=== PATIENT | male | born 1970 | race Caucasian/White ===

== ENCOUNTER 2017-08-31 18:39 | Emergency (ER) | payer MEDICAID ==
[~2017-08-31] VITALS: Ht 180.3 cm; Wt 86.2 kg
[~2017-08-31 18:39] MED LIST: BENADRYL25 MG PO; CHOLESTEROL; EXCEDRIN CAPLE1 EACH PO; GEODON60 MG PO; KLONOPIN0.5 MG PO; KLONOPIN1 MG PO; MAXALT10 MG PO; MEDROLDOSEPACK PO; NORCO 5-325 TA1 EACH PO; OMEGA-31000 M1 PO; RELPAX40 MG PO; TOPAMAX 100 MG100 MG PO; TRIAMCINOLONE A80 GM TOP; ULTRAM 50MG TAB50 MG PO; VALIUM5 MG PO
[2017-08-31] MEDS ORDERED: ZYPREXA 5 MG TAB5 M1 PO (18:46)
[2017-08-31 19:11] LABS: ABSOLUTE BASOPHILS 0.1 thou/uL (0.0-0.2); ABSOLUTE EOSINOPHILS 0.4 thou/uL (0.0-0.7); ABSOLUTE LYMPHOCYTES 3.4 thou/uL (0.8-5.3); ABSOLUTE MONOCYTES 0.8 thou/uL (0.0-1.2); ABSOLUTE NEUTROPHILS 10.5 thou/uL (1.6-8.1); BASOPHILS 0.9 %; EOSINOPHILS 2.4 %; HEMATOCRIT 45.9 % (42.0-52.0); HEMOGLOBIN 15.3 gm/dL (14.0-18.0); LYMPHOCYTES 22.4 %; MCH 29.9 pg (26.0-34.0); MCHC 33.3 g/dL (28.0-37.0); MCV 89.8 fL (80.0-100.0); MONOCYTES 5.4 %; MPV 7.6 fl. (7.2-11.1); NUCLEATED RBCS 0 /100WBC; PLATELET COUNT* 392 thou/uL (150-400); POLYS 68.9 %; RBC 5.12 mil/uL (4.50-6.00); RDW-CV 13.9 % (10.5-14.5); WBC 15.2 thou/uL (4.0-11.0)
[2017-08-31 19:13] LABS: URINE BILIRUBIN NEGATIVE (Negative); URINE BLOOD NEGATIVE (Negative); URINE CLARITY CLEAR; URINE COLOR YELLOW; URINE GLUCOSE-RANDOM NEGATIVE (Negative); URINE KETONES NEGATIVE (Negative); URINE LEUKOCYTES NEGATIVE (Negative); URINE NITRITE NEGATIVE (Negative); URINE PROTEIN NEGATIVE (Negative); URINE SPECIFIC GRAVITY 1.015 (1.005-1.030); URINE UROBILINOGEN 0.2 E.U./dl (0.2-1.0)
[2017-08-31 19:19] LABS: CALCIUM 9.3 mg/dL (8.5-10.1); CREATININE 1.2 mg/dL (0.6-1.3)
[2017-08-31 19:23] LABS: ALBUMIN 3.8 g/dL (3.4-5.0); TOTAL BILIRUBIN 0.3 mg/dL (<0.1-1.0); TOTAL PROTEIN 7.7 g/dL (6.4-8.2)
[2017-08-31] MEDS ORDERED: HYDROCODONE-AP1 EAC6 PO (20:42)
[2017-08-31 21:00] VITALS: BP 117/74
== END 2017-08-31 21:00 | disposition home or self-care (01) ==
LOC: M.ERS 18:39
PROVIDERS: Physician Assistant
DX: F20.9 Schizophrenia, unspecified (principal); R10.31 Right lower quadrant pain; R91.1 Solitary pulmonary nodule; G43.909 Migraine, unspecified, not intractable, without status migrainosus

== ENCOUNTER 2018-05-21 18:59 | Emergency (ER) | payer MEDICAID ==
[~2018-05-21] VITALS: Ht 180.3 cm; Wt 81.6 kg
[~2018-05-21 18:59] MED LIST changes: +HYDROCODONE-AP1 EAC6 PO; +ZYPREXA 5 MG TAB5 M1 PO
[2018-05-21] MEDS ORDERED: CLONAZEPAM 0.50.5 M1 PO (19:15)
[2018-05-21 19:23] LABS: URINE BILIRUBIN NEGATIVE (Negative); URINE BLOOD TRACE (Negative); URINE CLARITY CLEAR; URINE COLOR YELLOW; URINE GLUCOSE-RANDOM NEGATIVE (Negative); URINE KETONES NEGATIVE (Negative); URINE LEUKOCYTES-REFLEX NEGATIVE (Negative); URINE NITRITE-REFLEX NEGATIVE (Negative); URINE PROTEIN NEGATIVE (Negative); URINE SPECIFIC GRAVITY <= 1.005 (1.005-1.030); URINE UROBILINOGEN 0.2 E.U./dl (0.2-1.0)
[2018-05-21 19:43] LABS: ABSOLUTE BASOPHILS 0.1 thou/uL (0.0-0.2); ABSOLUTE EOSINOPHILS 0.2 thou/uL (0.0-0.7); ABSOLUTE LYMPHOCYTES 2.7 thou/uL (0.8-5.3); ABSOLUTE MONOCYTES 0.6 thou/uL (0.0-1.2); ABSOLUTE NEUTROPHILS 6.6 thou/uL (1.6-8.1); BASOPHILS 1.1 %; EOSINOPHILS 1.5 %; HEMATOCRIT 46.5 % (42.0-52.0); HEMOGLOBIN 15.8 gm/dL (14.0-18.0); LYMPHOCYTES 26.8 %; MCH 30.2 pg (26.0-34.0); MCHC 33.9 g/dL (28.0-37.0); MCV 89.1 fL (80.0-100.0); MONOCYTES 5.6 %; MPV 7.8 fl. (7.2-11.1); NUCLEATED RBCS 0 /100WBC; PLATELET COUNT* 373 thou/uL (150-400); RBC 5.23 mil/uL (4.50-6.00); RDW-CV 13.4 % (10.5-14.5); WBC 10.2 thou/uL (4.0-11.0)
[2018-05-21 19:53] LABS: CALCIUM 9.4 mg/dL (8.5-10.1); CREATININE 1.2 mg/dL (0.6-1.3); POTASSIUM 3.3 mmol/L (3.5-5.1)
[2018-05-21 19:57] LABS: TOTAL BILIRUBIN 0.5 mg/dL (<0.1-1.0); TOTAL PROTEIN 7.9 g/dL (6.4-8.2)
[2018-05-21] MEDS ORDERED: PROTONIX 20 MG20 MG PO (21:23)
[2018-05-21] MEDS ORDERED: BENTYL 20 MG TA20 M1 PO (21:23)
[2018-05-21 21:38] VITALS: BP 123/74
== END 2018-05-21 21:38 | disposition home or self-care (01) ==
LOC: M.ERS 18:59
PROVIDERS: Nurse Practitioner
DX: K64.4 Residual hemorrhoidal skin tags (principal); R10.84 Generalized abdominal pain; F20.9 Schizophrenia, unspecified; G43.909 Migraine, unspecified, not intractable, without status migrainosus